=== PATIENT | male | born 1995 | race Caucasian/White ===

== ENCOUNTER 2020-12-28 09:46 | Outpatient (REF) | payer BC, SELFPAY ==
[2020-12-28 10:29] LABS: MANUAL DIFF FLAG NO
[2020-12-28 10:43] LABS: Basophils Percent Auto 0.6 % (0-2); Eosinophils Absolute Auto 0.5 X10*3/uL (0.0-0.4); Eosinophils Percent Auto 9.7 % (0-4); Hematocrit 48.9 % (42-52); Hemoglobin 16.8 g/dl (14.0-18.0); Imm Gran Abs Auto 0.02 X10*3/uL (0.00-0.03); Imm Gran Pct Auto 0.4 % (0.0-0.4); Lymphocytes Absolute Auto 1.4 X10*3/uL (1.2-4.9); Mean Corpuscular HGB Conc 34.4 g/dl (31.0-36.0); Mean Corpuscular Volume 84.3 fL (80-98); Monocytes Absolute Auto 0.3 X10*3/uL (0.1-1.2); Monocytes Percent Auto 6.8 % (2-11); Neutrophils Absolute Auto 2.8 X10*3/uL (2.0-8.3); Neutrophils Percent Auto 55.5 % (45-73); Platelet Count 251 X10*3/uL (160-400); Red Cell Distribution Width 12.2 % (11.0-16.0)
[2020-12-28 11:21] LABS: Alanine Aminotransferase 44 U/L (0-40); Albumin Level 4.7 g/dL (3.5-5.0); Alkaline Phosphatase 118 U/L (39-117); Anion Gap 12 (12-20); Aspartate Amino Transferase 32 U/L (5-37); Bilirubin Total 0.7 mg/dL (0.0-1.0); Blood Urea Nitrogen 26 mg/dL (9-16); Calcium 9.5 mg/dL (8.4-10.2); Carbon Dioxide 28 mmol/L (22-29); Chloride 102 mmol/L (96-108); Cholesterol 222 mg/dL; Estimated Glomerular Filt Rate > 60; Glucose Random 96 mg/dL (60-115); HDL Cholesterol 52 mg/dL; LDL Cholesterol Calculated 152 mg/dl; Potassium 4.8 mmol/L (3.3-5.1); Sodium 137 mmol/L (135-145); Total Protein 7.9 g/dL (6.5-8.0); Triglycerides 91 mg/dL
[2020-12-28 12:40] LABS: Folate > 20.0 ng/mL (> or = 4.0); Vitamin B12 683 pg/mL (200-900)
== END 2020-12-28 09:47 | disposition home or self-care (01) ==
LOC: HO.LAB 09:46
PROVIDERS: PCP Internal Medicine; Visit Provider Internal Medicine
DX: E66.3 Overweight (principal); E78.00 Pure hypercholesterolemia, unspecified
CPT/HCPCS: 36415; 80053; 80061; 82607; 82746; 84443; 85025

== ENCOUNTER 2021-01-02 09:24 | Outpatient (REF) | payer BC, SELFPAY ==
--- NOTE | ~2021-01-02 | US_ITS ---
EXAMINATION: US ABDOMEN LIMITED CLINICAL INFORMATION: Other specified abnormal findings of blood chemistry. COMPARISON: None TECHNIQUE: Real-time imaging of the right upper quadrant abdominal viscera. FINDINGS: PANCREAS: The head and body the pancreas are normal. The tail is not well visualized due to bowel gas. LIVER: Normal. The liver is normal in size. The liver contour is normal. Parenchymal echogenicity is normal. No focal hepatic lesion. There is no intrahepatic biliary duct dilatation seen. GALLBLADDER: Normal. The gallbladder is physiologically distended without evidence of stones, sludge, polyps, wall thickening or pericholecystic fluid. COMMON BILE DUCT: Normal in caliber measuring 0.25 cm in diameter. RIGHT KIDNEY: Normal. No hydronephrosis. No renal calculi or focal parenchymal lesions. The kidney measures 13.0 cm in maximum dimension. FREE FLUID: None. US/US abdomen limited IMPRESSION: Limited visualization of the tail of the pancreas otherwise unremarkable right upper quadrant ultrasound.
== END 2021-01-02 09:25 | disposition home or self-care (01) ==
LOC: HO.US 09:24
PROVIDERS: Visit Provider Internal Medicine
DX: R79.89 Other specified abnormal findings of blood chemistry (principal)
CPT/HCPCS: 76705

== ENCOUNTER 2021-06-08 15:20 | Outpatient (REF) | payer BC, SELFPAY ==
--- NOTE | ~2021-06-08 | XR_ITS ---
EXAMINATION: XR TIBIA AND FIBULA, RIGHT CLINICAL INFORMATION: Enthesopathy COMPARISON: None TECHNIQUE: AP and lateral views of the right tibia and fibula were obtained. FINDINGS: On the provided AP view there is an appearance of medial tibial plateau possibly being compressed however this may be projectional in nature and no other fracture is identified. No dislocation is seen. No changes of enthesopathy noted. No significant soft tissue swelling is seen. XR/XR tibia fibula RT 2V IMPRESSION: No significant abnormality of the tibia or fibula identified. Clinical correlation with possible old medial tibial plateau fracture suggested.
== END 2021-06-08 15:21 | disposition home or self-care (01) ==
LOC: HO.HMGCX 15:20
PROVIDERS: PCP Internal Medicine; Visit Provider Internal Medicine
DX: M77.9 Enthesopathy, unspecified (principal)
CPT/HCPCS: 73590

== ENCOUNTER → 2021-06-23 10:57 | Outpatient (BNVA) | payer BC, SELFPAY | PROVIDERS: Visit Provider Physician Assistant ==

== ENCOUNTER 2022-10-10 13:12 | Outpatient (REF) | payer BC, SELFPAY ==
--- NOTE | ~2022-10-10 | US_ITS ---
EXAMINATION: US SCROTUM CLINICAL INFORMATION: Pure hypercholesterolemia, unspecified. Testicular mass. COMPARISON: None TECHNIQUE: A sonogram of the scrotum was performed assessing quinones-scale appearance and color Doppler flow. Spectral Doppler analysis of the arterial and venous flow were performed in the testes bilaterally. FINDINGS: RIGHT: Right testicle measures 4.4 x 2.1 x 2.4 cm, volume 11.6 mL. No focal testicular parenchymal lesions are visualized. Spectral Doppler analysis of the arterial and venous flow is normal in the right testis. Right epididymal head is normal in size. There is a small anechoic subcentimeter epididymal head cyst. No right hydrocele or varicocele is seen. Right epididymal Doppler flow is normal. LEFT: Left testicle measures 3.9 x 2.1 x 2.4 cm, volume 10.3 mL. No focal testicular parenchymal lesions are visualized. Spectral Doppler analysis of the arterial and venous flow is normal in the left testis. Left epididymal head is normal in size. No left hydrocele is seen. There is a left varicocele noted. There is an echogenic calcification inferior to left testis, likely a scrotal armida. Left epididymal Doppler flow is normal. Within the left scrotal wall, there is a round 1.2 x 1.0 x 1.2 cm echogenic lesion, question hematoma or sebaceous cyst. US/US scrotum IMPRESSION: 1. Normal bilateral testes with normal vascular flow. 2. Small right epididymal head cyst. 3. Left varicocele. 4. Left scrotal armida. 5. Left scrotal wall echogenic lesion, question hematoma or sebaceous cyst.
== END 2022-10-10 13:13 | disposition home or self-care (01) ==
LOC: HO.US 13:12
PROVIDERS: Visit Provider Internal Medicine
DX: R10.31 Right lower quadrant pain (principal); N50.82 Scrotal pain
CPT/HCPCS: 76870

== ENCOUNTER 2022-11-21 07:50 | Outpatient (REF) | payer BC, SELFPAY ==
[2022-11-21 07:55] VITALS: BMI 28.0
[2022-11-21 07:56] VITALS: BP 119/67; PULSE 75; RESP 16; TEMP 36.6; O2SAT 95
--- NOTE | 2022-11-21 08:45 | W.PM.OPN ---
Operative Note Operative Note Date of Service: 11/21/22 Narrative: PreOperative Diagnosis: Sebaceous cyst left anterior scrotal wall Post Operative Diagnosis: Sebaceous cyst left anterior scrotal wall Procedure: Excision of sebaceous cyst 1.5 cm x 1.0 cm by 1.0 cm Surgeon: Dr Newton Lawler Anesthesia: Local Indications for procedure: Expanding sebaceous cyst with skin changes secondary to shaving on left scrotal anterior Procedure: After informed consent was verified the patient was brought to the minor procedure room and placed in a supine position. Local Anesthesia was administered per protocol. The patient was prepped and draped in a sterile fashion. Safety pause time-out was performed. Scrotal cyst was clearly identifiable. The area was excised with elliptical incision approximately 2 cm x 1 cm in diameter. Sharp dissection was used to release the cyst from underlying tissue. Once the cyst was removed defect was closed with interrupted 4-0 chromic sutures. Skin edges were reapproximated using interrupted 4-0 chromic sutures. Patient was given instructions for postprocedure care Pathology: Sebaceous cyst Drains: None
[2022-11-21 08:50] VITALS: BP 123/61; PULSE 67; RESP 16; O2SAT 96
== END 2022-11-21 07:51 | disposition home or self-care (01) ==
LOC: HO.MS 07:50
PROVIDERS: PCP Internal Medicine; Visit Provider Urology
PROC: (CPT 11422; principal; 2022-11-21 08:00)
DX: L72.3 Sebaceous cyst (principal); L94.2 Calcinosis cutis
CPT/HCPCS: 11422; 88304; 88305

== ENCOUNTER → 2022-12-21 15:14 | Outpatient (BNVA) | payer BC, SELFPAY | PROVIDERS: PCP Internal Medicine; Visit Provider Urology | DX: Z13.89 Encounter for screening for other disorder (principal) ==

== ENCOUNTER 2023-06-08 08:25 | Outpatient (REF) | payer BC, SELFPAY ==
[2023-06-08 09:21] LABS: Alanine Aminotransferase 42 U/L (0-40); Albumin Level 4.2 g/dL (3.5-5.0); Alkaline Phosphatase 100 U/L (39-117); Anion Gap 14 (12-20); Aspartate Amino Transferase 24 U/L (5-37); Bilirubin Total 0.4 mg/dL (0.0-1.0); Blood Urea Nitrogen 23 mg/dL (9-16); Calcium 9.5 mg/dL (8.4-10.2); Carbon Dioxide 22 mmol/L (22-29); Chloride 107 mmol/L (96-108); Cholesterol 188 mg/dL; Estimated Glomerular Filt Rate > 60; Glucose Random 96 mg/dL (60-115); HDL Cholesterol 47 mg/dL; LDL Cholesterol Calculated 124 mg/dl; Sodium 139 mmol/L (135-145); Total Protein 7.4 g/dL (6.5-8.0); Triglycerides 86 mg/dL
[2023-06-08 09:38] LABS: Thyroid Stimulating Hormone 0.56 uIU/mL (0.32-4.0)
[2023-06-08 09:46] LABS: Appearance Urine Clear; Color Urine Yellow; Glucose Urine UA Negative (Negative); Leukocyte Esterase Urine Negative (Negative); Nitrite Urine Negative (Negative); Urine Blood Negative (Negative); Urine Ketones Negative (Negative); Urine Protein Negative (Neg-Trace)
[2023-06-10 03:59] LABS: Syphilis Screen Nonreactive (Nonreactive)
[2023-06-10 04:28] LABS: HBS Num1 2.92 mIU/mL (0-7.99); HBc Num1 0.11 S/CO (0.00-0.79); HBsAGNum1 0.37 S/CO (0.00-0.99); Hepatitis B Core Antibody Nonreactive (Nonreactive); Hepatitis B Surface Antigen Negative (Negative); ~HepC Num1 0.09 S/CO (0.00-0.79); ~Hepatitis B Surface Antibody NONREACTIVE (Nonreactive); ~Hepatitis C Antibody Nonreactive (Nonreactive)
[2023-06-10 04:42] LABS: HIV AB/AG Nonreactive (Nonreactive); HIV Num 1 0.07 S/CO (0.00-0.99)
== END 2023-06-08 08:26 | disposition home or self-care (01) ==
LOC: HO.LAB 08:25
PROVIDERS: Absent Provider Internal Medicine; PCP Internal Medicine; Visit Provider Internal Medicine
DX: Z11.4 Encounter for screening for human immunodeficiency virus [HIV] (principal); R79.89 Other specified abnormal findings of blood chemistry; E78.00 Pure hypercholesterolemia, unspecified; R39.9 Unspecified symptoms and signs involving the genitourinary system; Z20.2 Contact with and (suspected) exposure to infections with a predominantly sexual mode of transmission
CPT/HCPCS: 36415; 80053; 80061; 81003; 84439; 84443; 86704; 86706; 86780; 86803; 87340; 87389

== ENCOUNTER 2024-02-17 12:19 | Outpatient (AMB) | payer BC, SELFPAY ==
[2024-02-17 12:22] VITALS: BP 122/72; PULSE 77; O2SAT 95; BMI 31.6
--- NOTE | 2024-02-17 12:22 | A.OFFPC_ITS ---
Vital Signs 02/17/24 12:22 Height 5 ft 8 in Weight 208 lb BMI 31.6 BP 122/72 Blood Pressure Location Lt brachial Position Sitting Pulse 77 Pulse Source Pulse Oximeter Pulse Oximetry (%) 95 Oxygen Delivery Method Room Air Intake Visit Reasons: Annual Exam Allergies pollen extracts Adverse Reaction (Mild, Verified 02/17/24 12:23) Itching Medication List - Last Reconciled 02/17/24 by Kristen Malone MD albuterol sulfate 90 mcg/actuation 2 puffs PO Q4H PRN cetirizine (Zyrtec) 10 mg PO DAILY PRN fluticasone propionate 110 mcg/actuation 1 puff inhalation Q12H Tobacco use date assessed: 02/17/24 Dental Screening Dental Screen Date: 02/17/24 Did you have a dental visit in the last 12 months?: Yes Did you have a dental problem in the last 6 months where you did not have access to dental care?: No Was dental information given to patient?: Patient has dentist HPI Annual Exam HPI Details 28-year-old obese male with fatty liver hypercholesterolemia asthma coming in for physical exam last seen in February 2023. Received MRI of the hip right in December 2022 showing fluid signal in the right iliopsoas tendinous junction reflecting mild strain or low-grade myotendinous partial tear thic kening of the gluteus medius tendon reflecting tendinopathy and mild degenerative change of the right hip. hard time recalling information. [facility] Medical History Allergic rhinitis Asthma Irritable bowel syndrome Overweight (BMI 25.0-29.9) Surgical History No pertinent past surgical history Family History (Updated 02/17/24 @ 12:45 by Kristen Malone MD) Father No problems noted. Mother No problems noted. Maternal Grandmother Myocardial infarction Paternal Uncle Lung cancer Colon cancer Sister In good health Social History (Updated 02/17/24 @ 12:46 by Kristen Malone MD) Housing: House Alcohol intake: current Alcohol intake frequency: holidays/special occasions only Comment: 1-2 a year 2 renee Patient Tobacco Use Status: Never used Tobacco e-Cigarette/Vaping Use: Never Used Second Hand Smoke Exposure: No Current occupational status: employed Current occupation: [employer] Cognitive needs: No Hearing needs: No Vision needs: Yes Questionnaire PHQ-9 Over the last 2 weeks, how often have you been bothered by any of the following problems? 1. Little interest or pleasure in doing things: not at all 2. Feeling down, depressed, or hopeless: not at all 3. Trouble falling or staying asleep, or sleeping too much: not at all 4. Feeling tired or having little energy: not at all 5. Poor appetite or overeating: not at all 6. Feeling bad about yourself - or that you are a failure or have let yourself or your family down: not at all 7. Trouble concentrating on things, such as reading the newspaper or watching television: not at all 8. Moving or speaking so slowly that other people could have noticed. Or the opposite - being so fidgety or restless that you have been moving around a lot more than usual: not at all 9. Thoughts that you would be better off or of hurting yourself in some way: not at all Total score: 0 Depression Screening Interpretation: Negative Depression Screening Done: Yes Source: Developed by Drs. Christian Chairez, Karey Butterfield, Michael Moss and colleagues, with an educational mackenzie from [employer]. Thrive Questionnaire Date Thrive assessed: 02/17/24 I am a: Patient What is your living situation today?: I have a steady place to live Within the past 12 months, did the food you bought not last and you didn't have the money to get more?: Never true Within the past 12 months, did you worry whether your food would run out before you got money to buy more?: Never true Do you have trouble paying for medicines?: No Do you have trouble getting transportation to medical appointments?: No Do you have trouble paying your heating and electricity bill?: No Do you have trouble taking care of your child, family member or friend?: No Do you have trouble with day-to-day activities such as bathing, preparing meals, shopping, managing finances, etc.?: No Are you currently unemployed and looking for a job?: No Are you interested in more education?: No Currently or been in a relationship where the following occur: no concerns reported THRIVE Score: 0 AUDIT C Alcohol Use Questionnaire (AUDIT-C) 1. How often do you have a drink containing alcohol?: Monthly or less 2. How many drinks containing alcohol do you have on a typical day when you are drinking?: 1 or 2 3. How often do you have six or more drinks on one occasion?: Never Total Score: 1 JOSE-7 AMB Questionnaire JOSE-7 Date JOSE - 7 assessed: 02/17/24 Feeling nervous, anxious, or on edge: 0 = Not at all Not being able to stop or control worryin = Not at all Worrying too much about different things: 0 = Not at all Trouble relaxin = Not at all Being so restless that it is hard to sit still: 0 = Not at all Becoming easily annoyed or irritable: 0 = Not at all Feeling afraid as if something awful might happen: 0 = Not at all Total JOSE-7 score (0-4 normal; 5-9 mild; 10-14 moderate; 15-21 severe): 0 Source: Developed by Drs. Christian Chairez, Karey Butterfield, Michael Moss and colleagues, with an educational mackenzie from [employer]. Review of Systems Const Denies poor appetite and Denies weakness Eyes Denies no additional complaints ENT Reports Normal hearing present, Denies dizziness, Denies nasal congestion, Denies tinnitus and Denies sore throat Card Denies chest pain, Denies syncope, Denies rapid heart rate and Denies dyspnea Resp Denies cough and Denies dyspnea GI Denies change in stool character, Reports constipation, Denies diarrhea, Denies nausea and Denies vomiting Denies dysuria and Denies urinary frequency Neuro Reports Normal hearing present, Denies confusion, Denies dizziness, Denies syncope and Denies weakness Psych Denies confusion Physical exam (Primary Care) Vital Signs: Last Vital Signs Pulse 77 02/17/24 12:22 BP 122/72 02/17/24 12:22 Pulse Ox 95 02/17/24 12:22 Oxygen Delivery Method Room Air 02/17/24 12:22 BMI result Body Mass Index 31.6 Tobacco/Smoking Status: Tobacco use Status Tobacco use date assessed 02/17/24 02/17/24 12:28 Patient Tobacco Use Status Never used Tobacco 02/17/24 12:28 e-Cigarette/Vaping Use Never Used 02/17/24 12:28 PHQ-9: PHQ-9 Score PHQ-9: Total score 0 02/17/24 12:28 Depression Screening Interpretation: Negative Thrive Assessment: Date of Thrive Assessment Date Thrive assessed 02/17/24 02/17/24 12:28 Currently or been in a relationship where the following occur: no concerns reported Const General: alert and awake; No confusion Orientation/consciousness: No confusion HENMT Head: Yes normocephalic Ears: external ears normal and TM's normal bilaterally Face and sinus: Yes normal facial exam Mouth: moist mucous membranes Throat: Yes tonsils normal Eyes Conjunctivae: conjunctivae normal Pupils: Equal, round and reactive pupils present and Pupil accommodation reflex normal Direct Ophthalmoscopy: normal light reflex Neck Neck: No lymphadenopathy Thyroid: Thyroid normal Chest Chest palpation & inspection: normal inspection of the chest Resp Effort & Inspection: normal respiratory effort and no audible wheezes Auscultation: clear to auscultation bilaterally, no crackles, no wheezes and lung sounds not diminished Cardio Rate: regular rate Rhythm: regular rhythm Peripheral pulses: radial pulses present and dorsalis pedis present GI Other: Visual rectal exam is negative Palpation (GI): no masses Auscultation: normal bowel sounds and normoactive bowel sounds Rectal Exam - Male: Yes deferred Male General Exam: Yes normal external exam Skin General skin exam: no rashes or lesions noted Rashes: no rashes Neuro General: deep tendon reflexes 2+ bilaterally and No confusion Cranial nerves: Yes Equal, round and reactive pupils present, Yes Midline tongue present, Yes Normal hearing present and Yes Ability to bilaterally elevate shoulders present Cognition (Neuro): normal cognition Gait exam (Neuro): Normal gait present Motor exam (neuro): 5/5 motor strength present throughout Deep tendon reflexes (DTR's): Right brachioradialis reflex intensity grade: 2+, Left brachioradialis reflex intensity grade: 2+, Right patellar reflex intensity grade: 2+ and Left patellar reflex intensity grade: 2+ Extrem General: No edema Assessment and Plan Assessment & Plan (1) Annual physical exam: Code(s): Z00.00 - Encounter for general adult medical examination without abnormal findings (2) Obesity (BMI 30.0-34.9): Code(s): E66.9 - Obesity, unspecified Plan: Diet and exercise (3) Asthma: Code(s): J45.909 - Unspecified asthma, uncomplicated Qualifiers: Asthma severity: mild Asthma persistence: intermittent Asthma complication type: uncomplicated Qualified Code(s): J45.20 - Mild intermittent asthma, uncomplicated Plan: Continue with inhaler (4) LFT elevation: Code(s): R79.89 - Other specified abnormal findings of blood chemistry Orders: Orders Lipid Panel Today E78.00 - Pure hypercholesterolemia, unspecified, R7.89 - Other specified abnormal findings of blood chemistry Vitamin B12 and Folate Today R7.89 - Other specified abnormal findings of blood chemistry Hemoglobin A1c Today E66.9 - Obesity, unspecified Testosterone, Total Today E66.9 - Obesity, unspecified Complete Blood Count Auto Diff Today R7. - Other specified abnormal findings of blood chemistry Comprehensive Met. Panel Today R7. - Other specified abnormal findings of blood chemistry Free T4 (Free Thyroxine) Today R7. - Other specified abnormal findings of blood chemistry Thyroid Stimulating Hormone Today R7. - Other specified abnormal findings of blood chemistry Medications: Refilled fluticasone propionate 110 mcg/actuation 1 puff inhalation Q12H 12 grams 12RF E66.9 - Obesity, unspecified albuterol sulfate 90 mcg/actuation 2 puffs PO Q4H PRN 8.5 grams 1RF bronchospasm E78.00 - Pure hypercholesterolemia, unspecified Coding Level of Care Code Est Pt Prev Care [id number]) Diagnoses Annual physical exam Z00.00 Obesity (BMI 30.0-34.9) E66.9 Mild intermittent asthma without complication J45.20 Asthma severity: mild Asthma persistence: intermittent Asthma complication type: uncomplicated LFT elevation R79.89
== END 2024-02-17 13:05 | disposition home or self-care (01) ==
PROVIDERS: Visit Provider Internal Medicine
DX: Z00.00 Encounter for general adult medical examination without abnormal findings (principal); E66.9 Obesity, unspecified; Z68.31 Body mass index [BMI] 31.0-31.9, adult; J45.20 Mild intermittent asthma, uncomplicated; R79.89 Other specified abnormal findings of blood chemistry
CPT/HCPCS: 99395

== ENCOUNTER 2024-03-14 09:20 | Outpatient (REF) | payer BC, SELFPAY ==
[2024-03-14 09:30] LABS: MANUAL DIFF FLAG NO
[2024-03-14 10:17] LABS: Basophils Percent Auto 0.8 % (0-2); Eosinophils Absolute Auto 0.5 X10*3/uL (0.0-0.4); Eosinophils Percent Auto 8.9 % (0-4); Hematocrit 48.2 % (42.0-52.0); Hemoglobin 16.3 g/dl (14.0-18.0); Imm Gran Abs Auto 0.01 X10*3/uL (0.00-0.03); Imm Gran Pct Auto 0.2 % (0.0-0.4); Lymphocytes Absolute Auto 1.3 X10*3/uL (1.2-4.9); Mean Corpuscular HGB Conc 33.8 g/dl (31.0-36.0); Mean Corpuscular Hemoglobin 28.6 pg (27.0-33.0); Mean Corpuscular Volume 84.6 fL (80.0-98.0); Mean Platelet Volume 9.1 fL (9.4-12.4); Monocytes Absolute Auto 0.3 X10*3/uL (0.1-1.2); Monocytes Percent Auto 6.4 % (2-11); Neutrophils Absolute Auto 3.2 x10*3/uL (2.0-8.3); Neutrophils Percent Auto 59.7 % (45-73); Platelet Count 293 X10*3/uL (160-400); Red Cell Distribution Width 12.5 % (11.0-16.0); White Blood Count 5.3 X10*3/uL (4.8-10.8)
[2024-03-14 11:23] LABS: Alanine Aminotransferase 32 U/L (0-40); Albumin Level 4.4 g/dL (3.5-5.0); Alkaline Phosphatase 110 U/L (39-117); Anion Gap 14 (12-20); Aspartate Amino Transferase 22 U/L (5-37); Bilirubin Total 0.5 mg/dL (0.0-1.0); Blood Urea Nitrogen 18 mg/dL (9-16); Carbon Dioxide 24 mmol/L (22-29); Chloride 107 mmol/L (96-108); Cholesterol 173 mg/dL (<200); Estimated Glomerular Filt Rate > 60; Glucose Random 99 mg/dL (60-115); HDL Cholesterol 45 mg/dL (>40); LDL Cholesterol Calculated 115 mg/dL (<100); Potassium 4.2 mmol/L (3.3-5.1); Sodium 141 mmol/L (135-145); Total Protein 7.7 g/dL (6.5-8.0); Triglycerides 67 mg/dL (<150)
[2024-03-14 11:31] LABS: Estimated Average Glucose 105 mg/dL; Hemoglobin A1c % 5.3 % (<6.0)
[2024-03-14 11:40] LABS: Free T4 (Free Thyroxine) 1.14 ng/dL (0.71-1.85); Thyroid Stimulating Hormone 0.45 uIU/mL (0.32-4.0)
[2024-03-14 11:54] LABS: Folate 9.9 ng/mL (> or = 4.0); Vitamin B12 476 pg/mL (200-900)
[2024-03-18 12:48] LABS: Testosterone, Total 431 ng/dL (250-1100)
== END 2024-03-14 09:21 | disposition home or self-care (01) ==
LOC: HO.LAB 09:20
PROVIDERS: PCP Internal Medicine; Visit Provider Internal Medicine
DX: E66.9 Obesity, unspecified (principal); E78.00 Pure hypercholesterolemia, unspecified; R79.89 Other specified abnormal findings of blood chemistry
CPT/HCPCS: 36415; 80053; 80061; 82607; 82746; 83036; 84403; 84439; 84443; 85025

== ENCOUNTER 2025-02-18 10:11 | Outpatient (AMB) | payer BC, SELFPAY ==
--- NOTE | 2025-02-18 10:26 | MHC.PC.OV ---
Vital Signs 02/18/25 10:27 Height 5 ft 8 in Weight 212 lb 8 oz BMI 32.3 BP 132/60 Blood Pressure Location Lt brachial Position Sitting Pulse 65 Pulse Source Pulse Oximeter Temp 97.3 F Temp Source Temporal Artery Scan Pulse Oximetry (%) 97 Oxygen Delivery Method Room Air Intake Visit Reasons: Annual Exam Intake Note: Patient is here today for a physical. Instructional Media Services Technician Required: No Senior Military Analyst: Not Required per policy Accompanied by: Self / Same As Patient Allergies pollen extracts Adverse Reaction (Mild, Verified 02/18/25 10:27) Itching Medication List - Last Reconciled 02/18/25 by Kristen Malone MD albuterol sulfate 90 mcg/actuation 2 puffs PO Q4H PRN budesonide-formoterol 160-4.5 mcg/actuation (Symbicort) 2 puffs inhalation Q12H cetirizine (Zyrtec) 10 mg PO DAILY PRN Tobacco use date assessed: 02/18/25 Dental Screening Dental Screen Date: 02/18/25 Did you have a dental visit in the last 12 months?: Yes Did you have a dental problem in the last 6 months where you did not have access to dental care?: No Was dental information given to patient?: Patient has dentist [facility] Medical History (Updated 02/18/25 @ 10:55 by Kristen Malone MD) [place] splint of right lower extremity Tendinitis Scrotal mass Scrotal sebaceous cyst Groin pain, chronic, right [place] splint of left lower extremity Overweight (BMI 25.0-29.9) Irritable bowel syndrome Allergic rhinitis Asthma Surgical History No pertinent past surgical history Family History Father No problems noted. Mother No problems noted. Maternal Grandmother Myocardial infarction Paternal Uncle Lung cancer Colon cancer Sister In good health Social History (Updated 02/18/25 @ 10:56 by Kristen Malone MD) Housing: House Alcohol intake: current Alcohol intake frequency: holidays/special occasions only Comment: once a month 3drinks Patient Tobacco Use Status: Never used Tobacco e-Cigarette/Vaping Use: Never Used Second Hand Smoke Exposure: No service: No Current occupational status: employed Current occupation: [employer] Cognitive needs: No Hearing needs: No Vision needs: Yes Questionnaire PHQ-9 Over the last 2 weeks, how often have you been bothered by any of the following problems? 1. Little interest or pleasure in doing things: not at all 2. Feeling down, depressed, or hopeless: not at all 3. Trouble falling or staying asleep, or sleeping too much: not at all 4. Feeling tired or having little energy: not at all 5. Poor appetite or overeating: not at all 6. Feeling bad about yourself - or that you are a failure or have let yourself or your family down: not at all 7. Trouble concentrating on things, such as reading the newspaper or watching television: not at all 8. Moving or speaking so slowly that other people could have noticed. Or the opposite - being so fidgety or restless that you have been moving around a lot more than usual: not at all 9. Thoughts that you would be better off or of hurting yourself in some way: not at all Total score: 0 Depression Screening Interpretation: Negative Depression Screening Done: Yes Source: Developed by Drs. Christian Chairez, Karey Butterfield, Michael Moss and colleagues, with an educational mackenzie from [employer]. Thrive Questionnaire Date Thrive assessed: 02/18/25 I am a: Patient What is your living situation today?: I have a steady place to live Within the past 12 months, did the food you bought not last and you didn't have the money to get more?: Never true Within the past 12 months, did you worry whether your food would run out before you got money to buy more?: Never true Do you have trouble paying for medicines?: No Do you have trouble getting transportation to medical appointments?: No Do you have trouble paying your heating and electricity bill?: No Do you have trouble taking care of your child, family member or friend?: No Do you have trouble with day-to-day activities such as bathing, preparing meals, shopping, managing finances, etc.?: No Are you currently unemployed and looking for a job?: No Are you interested in more education?: No Please select the resources that you would like help with: None Currently or been in a relationship where the following occur: No concerns reported THRIVE Score: 0 AUDIT C Alcohol Use Questionnaire (AUDIT-C) 1. How often do you have a drink containing alcohol?: Never Total Score: 0 JOSE-7 AMB Questionnaire JOSE-7 Date JOSE - 7 assessed: 02/18/25 Feeling nervous, anxious, or on edge: 0 = Not at all Not being able to stop or control worryin = Not at all Worrying too much about different things: 0 = Not at all Trouble relaxin = Not at all Being so restless that it is hard to sit still: 0 = Not at all Becoming easily annoyed or irritable: 0 = Not at all Feeling afraid as if something awful might happen: 0 = Not at all Total JOSE-7 score (0-4 normal; 5-9 mild; 10-14 moderate; 15-21 severe): 0 Source: Developed by Drs. Christian Chairez, Karey Butterfield, Michael Moss and colleagues, with an educational mackenzie from [employer]. Review of Systems Const Denies poor appetite and Denies weakness Eyes Denies no additional complaints ENT Reports Normal hearing present, Denies dizziness, Denies nasal congestion, Denies tinnitus and Denies sore throat Card Denies chest pain, Denies syncope, Denies rapid heart rate and Denies dyspnea Resp Denies cough and Denies dyspnea GI Denies change in stool character, Reports constipation, Denies diarrhea, Denies nausea and Denies vomiting Denies dysuria and Denies urinary frequency Neuro Reports Normal hearing present, Denies confusion, Denies dizziness, Denies syncope and Denies weakness Psych Denies confusion Physical exam (Primary Care) Vital Signs: Last Vital Signs Temp 97.3 F 02/18/25 10:27 Pulse 65 02/18/25 10:27 BP 132/60 02/18/25 10:27 Pulse Ox 97 02/18/25 10:27 Oxygen Delivery Method Room Air 02/18/25 10:27 BMI result Body Mass Index 32.3 Tobacco/Smoking Status: Tobacco use Status Tobacco use date assessed 02/18/25 02/18/25 10:45 Patient Tobacco Use Status Never used Tobacco 02/18/25 10:56 e-Cigarette/Vaping Use Never Used 02/18/25 10:56 PHQ-9: PHQ-9 Score PHQ-9: Total score 0 02/18/25 10:49 Depression Screening Interpretation: Negative Thrive Assessment: Date of Thrive Assessment Date Thrive assessed 02/18/25 02/18/25 10:45 Currently or been in a relationship where the following occur: No concerns reported Const General: No confusion Orientation/consciousness: No confusion HENMT Head: Yes normocephalic Ears: external ears normal and TM's normal bilaterally Face and sinus: Yes normal facial exam Mouth: moist mucous membranes Throat: Yes tonsils normal Eyes Conjunctivae: conjunctivae normal Pupils: Equal, round and reactive pupils present and Pupil accommodation reflex normal Direct Ophthalmoscopy: normal light reflex Neck Neck: No lymphadenopathy Thyroid: Thyroid normal Chest Chest palpation & inspection: normal inspection of the chest Resp Effort & Inspection: normal respiratory effort and no audible wheezes Auscultation: clear to auscultation bilaterally, no crackles, no wheezes and lung sounds not diminished Cardio Rate: regular rate Rhythm: regular rhythm Peripheral pulses: radial pulses present and dorsalis pedis present GI Palpation (GI): no masses Auscultation: normal bowel sounds and normoactive bowel sounds Rectal Exam - Male: Yes deferred Skin General skin exam: no rashes or lesions noted Rashes: no rashes Neuro General: No confusion Cranial nerves: Yes Equal, round and reactive pupils present and Yes Normal hearing present Cognition (Neuro): normal cognition Gait exam (Neuro): Normal gait present Motor exam (neuro): 5/5 motor strength present throughout Deep tendon reflexes (DTR's): Right brachioradialis reflex intensity grade: 2+, Left brachioradialis reflex intensity grade: 2+, Right patellar reflex intensity grade: 2+ and Left patellar reflex intensity grade: 2+ Extrem General: No edema Coding Level of Care Code Est Pt Prev Care 18-39y(25626) Diagnoses Annual physical exam Z00.00 Obesity (BMI 30.0-34.9) E66.9 Mild intermittent asthma without complication J45.20 Asthma complication type: uncomplicated Asthma persistence: intermittent Asthma severity: mild Assessment & Plan Assessment & Plan (1) Annual physical exam: Code(s): Z00.00 - Encounter for general adult medical examination without abnormal findings Category: Medical Plan: Patient is advised to eat healthy, keep well hydrated, keep active and have adequate sleep. (2) Obesity (BMI 30.0-34.9): Code(s): E66.9 - Obesity, unspecified Category: Medical Plan: Diet and exercise (3) Asthma: Code(s): J45.909 - Unspecified asthma, uncomplicated Category: Medical Qualifiers: Asthma complication type: uncomplicated Asthma persistence: intermittent Asthma severity: mild Qualified Code(s): J45.20 - Mild intermittent asthma, uncomplicated Plan: Continue with albuterol and as needed Plan History of Present Illness The patient is a 29-year-old male presenting for a wellness examination. He has a well-documented history of asthma and hypercholesterolemia. Recent laboratory results from March confirm normal findings across multiple parameters, including no evidence of anemia, normal cholesterol levels, and liver function. Additionally, hepatic ultrasound and hip MRI results confirmed the absence of significant hepatic issues while demonstrating right hip tendinopathy. The patient follows a recommended wellness plan involving a balanced diet and regular exercise. He uses albuterol on an as-needed basis to manage asthma symptoms. Vaccination records show up-to-date immunizations, including tetanus. No new health concerns were brought up during this visit. Health Maintenance - Last physical exam conducted in February. - Blood work conducted on March 14 is normal in all aspects. - Hepatitis screen: Negative. - Current asthma management: Albuterol as needed. - Ultrasound of the liver: Normal. - MRI of the hip in 2022 showing right hip tendinopathy with mild degenerative changes. - Well-maintained diet and exercise plan. - Vaccination up-to-date, including tetanus. Social History - Engages in regular exercise. - Follows a healthy diet. - Vaccination status is up-to-date, including tetanus. Review of Systems - Respiratory: Reports use of albuterol as needed; denies any new respiratory symptoms. - Musculoskeletal: Reports past issues with right hip tendinopathy; denies any new symptoms. Physical Exam General: Cooperative, healthy appearing, comfortable, no acute distress and well developed Orientation: Patient oriented x3 Limitations: No limitations Head: Normal to inspection Ears: Hearing grossly normal bilaterally Nose: Normal external nose present Face and sinus: Normal facial exam Eyes: Appearance normal, both eyes and all related structures Neck: Normal visual inspection and Yes full ROM Respiratory: Normal respiratory effort and able to speak in complete sentences. Clear to auscultation bilaterally Cardiovascular: Regular rate and rhythm. Normal S1 and S2 GI: Normal to inspection. Soft to palpation and nontender Skin: No rashes or lesions noted Neuro: Patient oriented x3 Extremities: Normal to inspection Results - Labs: Normal blood count, electrolytes, renal function, blood sugar, liver function, cholesterol, vitamin B12, folic acid, thyroid levels, testosterone, and urine test. - Tests and Diagnostics: Negative hepatitis screen, normal liver ultrasound, and MRI of the hip showing right hip tendinopathy with mild degenerative changes. Plan The patient's asthma will continue to be managed with albuterol on an as-needed basis. Hypercholesterolemia is currently well-managed with no immediate changes required. The MRI findings for right hip tendinopathy are consistent with current management and the patient should continue regular exercise and focus on hip strengthening exercises. The patient's vaccines, including tetanus, are up to date. Emphasis is placed on maintaining a balanced diet, hydration, and regular physical activity. Patient was informed and verbally consented to the use of an ambient scribe for clinic note documentation during this visit. Discussion Notes During the visit, we reviewed the patient's health maintenance issues, confirming normal lab values from March, with particular attention to liver function and cholesterol levels. We discussed the ongoing management and symptom control of asthma with albuterol as needed. I detailed the MRI findings of right hip tendinopathy, advising continued adherence to a strengthening and exercise regimen to manage symptoms. Vaccination status was reviewed, confirming that all are current. We agreed that the patient should maintain regular physical activity and a healthy diet. The importance of hydration and wellness routines was highlighted. Patient Instructions - Continue using albuterol as needed for asthma. - Follow your wellness plan including regular exercise and a healthy diet. - Vaccination is current, no action required at this time. - Maintain hydration and keep up with your current diet and exercise regimen. - No new complaints; monitor any changes in symptoms or health and report them promptly. Orders: Orders Complete Blood Count Auto Diff Today E78.00 - Pure hypercholesterolemia, unspecified Comprehensive Met. Panel Today E78.00 - Pure hypercholesterolemia, unspecified Free T4 (Free Thyroxine) Today E78.00 - Pure hypercholesterolemia, unspecified Lipid Panel Today E78.00 - Pure hypercholesterolemia, unspecified Thyroid Stimulating Hormone Today E78.00 - Pure hypercholesterolemia, unspecified Vitamin B12 and Folate Today E78.00 - Pure hypercholesterolemia, unspecified Medications: New budesonide-formoterol 160-4.5 mcg/actuation (Symbicort) 2 puffs inhalation Q12H 10.2 grams 12RF J45.20 - Mild intermittent asthma, uncomplicated Discontinued fluticasone propionate 110 mcg/actuation Discontinued Reason: Doctor's Order 1 puff inhalation Q12H 12 grams 12RF E66.9 - Obesity, unspecified
[2025-02-18 10:27] VITALS: BP 132/60; PULSE 65; TEMP 36.3; O2SAT 97; BMI 32.3
--- OUTSIDE RECORDS SUMMARY | 2025-02-18 11:54 | XMS_ITS | Encounter Summary ---
Author Organization [facility] Address [address] [place] [address] Phone Care Team Providers Care Sole Leveling Machine Operator Name Role Phone Christian Mix MD Primary Care Provider [phone] Encounter Details Date Type Department Care Team (Late st Contact Info) Description 03/30/2018 Conversion Encounter [facility] [address] [place] [address] Christian Mix MD [address] [place] [address] Social History Tobacco Use Types Packs/Day Years Used Date Smoking Tobacco: Never Assessed Sex and Gender Information Value Date Recorded Sex Assigned at Not on file Legal Sex Male 6:21 PM EDT Gender Identity Not on file Sexual Orientation Not on file documented as of this encounter Plan of Treatment Not on file documented as of this encounter Visit Diagnoses Not on filedocumented in this encounter Care Teams Sole Leveling Machine Operator Relationship Specialty Start Date End Date Christian Mix MD [address] [place] [address] PCP - General 03/19/18 10/13/24 documented as of this encounter
--- OUTSIDE RECORDS SUMMARY | 2025-02-18 11:54 | XMS_ITS | Clinical Summary ---
Author Organization [facility] Address [address] [place] [id number] Phone Care Team Providers Care Technical Fellow Name Role Phone Unavailable Primary Care Provider Unavailabl e Immunizations Immunization Administration Dates Next Due DTaP 06/18/2000, 6,1995, 995,1995 HPV, Quadrivalent 07/03/2013 Hep B, ped/adol 03/16/1996,1995,1995 Hib (PRP-T) 08/28/1996, 6,1995, 995 IPV 06/18/2000 Influenza, injectable, quadrivalent 08/08/2013,0 07/02/2012 MMR 06/18/2000,06/19/1996 Meningococcal Conj (Menactra) MCV4P 06/29/2011,0 06/25/2007 OPV 1995,1995,1995 Tdap 06/20/2006 Varicella 12/12/1996 Family History Relation Name Status Comments Father Alive hypertension, h yperlipidemia age: 44 Maternal Grandfather Alive CAD Maternal Grandmother Alive CAD Mother Alive hyperlipidemia, hypothyroidism age: 40 Other Alive Siblings: age: 15 Paternal Grandfather cancer Paternal Grandmother Alive dementi a Social History Tobacco Use Types Packs/Day Years Used Date Smoking Tobacco: Never Assessed Sex and Gender Information Value Date Recorded Sex Assigned at Not on file Legal Sex Male 6:21 PM EDT Gender Identity Not on file Sexual Orientation Not on file Last Filed Vital Signs Vital Sign Reading Time Taken Comments Blood Pressure 122/76 02/26/2014 12:00 AM EDT Pulse 100 01/02/2013 12:00 AM EST Temperature 37 ??C (98.6 ??F) 02/26/2014 12:00 AM EDT Respiratory Rate - - Oxygen Saturation 95% 04/05/2012 12:00 AM EDT Inhaled Oxygen Concentration - - Weight 80.7 kg (178 lb) 02/26/2014 12:00 AM EDT Height 175.9 cm (5' 9.25 ) 02/26/2014 12:00 AM E DT Body Mass Index 26.1 02/26/2014 12:00 AM EDT Plan of Treatment Health Maintenance Due Date Last Done Comments Varicella Vaccines (2 of 2 - 2-dose childhood series) 07/16/2000 12/12/1996 HPV Vaccines (2 - Male 3-dose series) 07/31/2013 07/03/2013 DTaP,Tdap,and Td Vaccines (7 - Td or Tdap) 06/20/2016 06/20/2006, 06/18/2000, 08/28/1996, Additional history exists Influenza Vaccines (#1) 2024 08/08/2013, 07/02 COVID-19 Vaccine ( season) 2024 Hepatitis B Vaccines Completed 03/16/1996, 1995, 1995 HIB Vaccines Completed 08/28/1996, 12/12, 1995, Additional history exists IPV Vaccines Completed 06/18/2000, 12/12, 1995, Additional history exists MMR Vaccines Completed 06/18/2000, 06/19/1996 Meningococcal Vaccine Completed 06/29/2011, 007 Hepatitis A Vaccines Aged Out No long er eligible based on patient's age to complete this topic Men B Vaccine Aged Out No longer elig ible based on patient's age to complete this topic Pneumococcal Vaccine Aged Out No long er eligible based on patient's age to complete this topic
== END 2025-02-18 11:18 | disposition home or self-care (01) ==
LOC: HO.HMCH 10:12
PROVIDERS: PCP Internal Medicine; Visit Provider Internal Medicine
DX: Z00.00 Encounter for general adult medical examination without abnormal findings (principal); E66.9 Obesity, unspecified; J45.20 Mild intermittent asthma, uncomplicated; Z68.32 Body mass index [BMI] 32.0-32.9, adult

== ENCOUNTER → 2025-02-18 10:11 | Outpatient (BNVA) | payer BC, SELFPAY | PROVIDERS: PCP Internal Medicine; Visit Provider Internal Medicine ==